=== PATIENT | female | born 1990 | race Caucasian/White ===

== ENCOUNTER 2017-09-09 21:28 | Emergency (ER) | payer SELFPAY ==
[~2017-09-09] VITALS: Ht 165.1 cm; Wt 55.2 kg
[2017-09-09 22:29] VITALS: Ht 165.1 cm; Wt 55.2 kg
== END 2017-09-09 23:28 | disposition left against medical advice (07) ==
LOC: FTE 21:28
DX: Z53.21 Procedure and treatment not carried out due to patient leaving prior to being seen by health care provider (principal)